=== PATIENT | female | born 1950 | race African-American/Black ===

== ENCOUNTER → 2017-04-09 | Outpatient (CLI) | payer MEDICARE, BC ==
[~2017-04-09] MED LIST: VAGIFEM25 MCG PO; ZESTORETIC 10/11 TAB PO
--- NOTE | ~2017-04-09 | US128 ---
[id number] [address] [address] [id number] O MR#: [id number] Acc #: [id number] NAME: JAYLON BERRY : 1950 SEX: F STUDY DATE/TIME: 04/09/2017 11:14 UNIT: [facility] ROOM: STUDY DESCRIPTION: Thyroid Attending Physician: Won Wheatley M.D. Referring Physician: Won Wheatley M.D. Ordering Physician: Won Wheatley M.D. Primary Care Physician: Won Wheatley M.D. MEDICAL IMAGING REPORT This report is preliminary unless electronic signature is present. EXAM Thyroid sonogram HISTORY Thyroid nodules on the right. Evaluate for growth over time. COMPARISON 06/20/2016 TECHNIQUE Ultrasound evaluation of the thyroid gland was performed with donahue-scale and color-flow imaging. FINDINGS The right thyroid lobe measures 1.4 x 1.4 x 4.1 cm. It contains 2 nodules, 1 in the midportion measuring 5 x 7 x 7 mm and the other at the lower pole measuring 9 x 9 x 12 mm. The nodules are predominately cystic. They are unchanged in size from the previous exam. The left thyroid lobe measures 1.2 x 1.1 x 4.1 cm with a normal echo pattern. IMPRESSION The two predominately cystic right thyroid nodules are unchanged in size from previous examination. Recommend continued ultrasound followup. Dictated by... Rylan Gallardo M.D. THIS IS AN ELECTRONICALLY VERIFIED REPORT Rylan Gallardo M.D. at 04/10/2017 4:42 PM VINNY/isaac TD: 04/10/2017 13:13 JOB #: [id number] MEDICAL IMAGING REPORT Page 1 of 1
== END | disposition home or self-care (01) ==
LOC: SGUS 10:38
DX: E04.2 Nontoxic multinodular goiter (principal)
CPT/HCPCS: 76536